=== PATIENT | male | born 1970 | race African-American/Black ===

== ENCOUNTER 2022-10-04 19:58 | Emergency (ER) | payer BC, SELFPAY ==
[2022-10-04 20:20] VITALS: BP 159/87; PULSE 79; RESP 16; TEMP 36.4; O2SAT 100
--- NOTE | 2022-10-04 21:41 | ED.GENADULT ---
HPI - General Adult General Chief complaint: Abdominal Pain Stated complaint: pain after kidney stone removal Time Seen by Provider: 10/04/22 21:01 History of Present Illness HPI narrative: this is a 52-year-old male who underwent lithotripsy and kidney stent placement at [facility] earlier today. He was unable to fill his tramadol prescription and has not been able to take any pain medications. He is presenting with sharp left-sided flank pain that radiates into his groin. He is requesting pain control to get him through the night until he can fill his prescriptions the morning. He denies other complaints at this time. Related Data Allergies Allergy/AdvReac Type Severity Reaction Status Date / Time No Known Allergies Allergy Verified 10/04/22 20:50 [facility] Past Medical History Medical History Hypertension Kidney stone Exam Narrative: APPEARANCE: Patient appears uncomfortable Head: atraumatic. EYES: EOMI, NOSE: Atraumatic NECK: Trachea midline RESPIRATORY: No increased rate of breathing clear to auscultation CARDIOVASCULAR: RRR, ABDOMINAL: abdomen is soft nontender no guarding rebound, mild CVA tenderness MUSCULOSKELETAl: No obvious deformities NEURO: Alert. Moving 4/4 extremities SKIN:: Warm, dry. Normal color PSYCHIATRIC: Normal affect Course Vital Signs Vital signs: Vital Signs Temperature 97.6 F 10/04/22 20:20 Pulse Rate 79 10/04/22 20:20 Respiratory Rate 16 10/04/22 20:20 Blood Pressure 159/87 H 10/04/22 20:20 Pulse Oximetry 100 10/04/22 20:20 Oxygen Delivery Room Air 10/04/22 20:20 Temperature 97.6 F 10/04/22 20:20 Pulse Rate 79 10/04/22 20:20 Respiratory Rate 16 10/04/22 20:20 Blood Pressure 159/87 H 10/04/22 20:20 Pulse Oximetry 100 10/04/22 20:20 Oxygen Delivery Room Air 10/04/22 20:20 Medical Decision Making MDM Narrative Medical decision making narrative: -Presentation: 52-year-old male who had a lithotripsy and stent placed earlier today at [facility] presenting for pain control. Patient was unable to fill his tramadol. He is comfortable filling his tramadol in the morning and following up with his surgeon at [facility] he has further difficulty. 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 He will be discharged to get his prescriptions in the morning and can follow up with surgeon if he has further difficulty. -RX Vital Signs Vital Signs: Vital Signs Temperature 97.6 F 10/04/22 20:20 Pulse Rate 79 10/04/22 20:20 Respiratory Rate 16 10/04/22 20:20 Blood Pressure 159/87 H 10/04/22 20:20 Pulse Oximetry 100 10/04/22 20:20 Oxygen Delivery Room Air 10/04/22 20:20 Temperature 97.6 F 10/04/22 20:20 Pulse Rate 79 10/04/22 20:20 Respiratory Rate 16 10/04/22 20:20 Blood Pressure 159/87 H 10/04/22 20:20 Pulse Oximetry 100 10/04/22 20:20 Oxygen Delivery Room Air 10/04/22 20:20 Discharge Plan Discharge Clinical Impression: Kidney stone Patient Disposition: Home, Self-Care Condition: Stable Instructions: Antibiotic Form, Flank Pain (ED) Additional Instructions: Please fill your prescriptions for pain medications in the morning. Please follow-up with your surgeon. If you continue to have pain, develops fevers or have persistent nausea vomiting I recommend that you follow-up at the hospital we had her procedure per
[2022-10-04] MEDS: ACETAMINOPHEN 500 MG TABLET 1000 MG PO (21:47)
[2022-10-04] MEDS: HYDROmorphone HCL INJ (*CRX) 1 MG/ML SYR IM (21:49)
== END 2022-10-04 22:05 | disposition home or self-care (01) ==
PROVIDERS: Emergency Provider Emergency Medicine; PCP Family Medicine Sports Medicine
DX: N20.0 Calculus of kidney (principal); Z96.0 Presence of urogenital implants; I10 Essential (primary) hypertension
CPT/HCPCS: 96372; 99283; A9270; J1170